=== PATIENT | female | born 1990 | race Caucasian/White ===

== ENCOUNTER → 2024-01-07 12:15 | Outpatient (CLI) | payer OTHER, SELFPAY ==
[2024-01-07 16:27] LABS: Urine N gonorrhoeae NOT DETECTED
[2024-01-07 16:47] LABS: Urine Chlamydia NOT DETECTED
== END ==
PROVIDERS: Referring Provider Obstetrics & Gynecology; Visit Provider Obstetrics & Gynecology
DX: Z34.81 Encounter for supervision of other normal pregnancy, first trimester (principal); Z3A.01 Less than 8 weeks gestation of pregnancy
CPT/HCPCS: 87491; 87591

== ENCOUNTER → 2024-02-11 11:18 | Outpatient (CLI) | payer OTHER, SELFPAY ==
[2024-02-11 13:07] LABS: Natera Collection Specimen Collected
[2024-02-11 13:22] LABS: Add Manual Diff / Slide Review NO; Basophils Absolute Auto 0 /uL (0-100); Basophils Percent Auto 0.3 % (0-2); Eosinophils Absolute Auto 100 /uL (0-450); Hematocrit 38.7 % (36-46); Hemoglobin 13.1 g/dL (12.0-16.0); Lymphocytes Absolute Auto 1900 /uL (1100-4500); Lymphocytes Percent Auto 21.3 % (25-40); Mean Corpuscular Hemoglobin 29.6 PG (26-34); Mean Corpuscular Volume 87.3 fL (80-100); Monocytes Absolute Auto 500 /uL (0-900); Monocytes Percent Auto 5.8 % (3-14); Neutrophils Absolute Auto 6500 /uL (1500-7000); Neutrophils Percent Auto 71.6 % (50-75); Platelet Count 251 X10^3/uL (150-400); Red Blood Cell Count 4.43 X10^6/uL (4.0-5.2); Red Cell Distribution Width 13.4 % (11.6-14.8)
[2024-02-13 12:38] LABS: Varicella IgG Antibody Reactive (Non Reactive)
[2024-02-14 15:53] LABS: Hepatitis B Surface Antigen NEGATIVE s/c (NEGATIVE); Rubella Antibody IgG 58.1 IU/mL (>15)
[2024-02-14 16:09] LABS: HIV 1 & 2 Ab/Ag 4th Gen Combo NEGATIVE (NEGATIVE); Hep C Virus Ab w/Reflex Quant NEGATIVE s/c (NEGATIVE)
[2024-02-15 03:37] LABS: RPR Screen Non Reactive (Non Reactive)
== END ==
PROVIDERS: Referring Provider Obstetrics & Gynecology; Visit Provider Obstetrics & Gynecology
DX: Z34.81 Encounter for supervision of other normal pregnancy, first trimester (principal); Z3A.12 12 weeks gestation of pregnancy
CPT/HCPCS: 36415; 80055; 86787; 86803; 86850; 86900; 86901; 87086; 87389

== ENCOUNTER → 2024-04-06 10:57 | Outpatient (CLI) | payer OTHER, SELFPAY ==
--- NOTE | 2024-04-06 11:00 | DI.US.S_ITS ---
PROCEDURE: US OB >= 14 WEEKS FETUS INDICATIONS: 20 week anatomy OUTSIDE/PRIOR DATING DATA: The calculations are made using the working RUDY of 08/24/2024. TECHNIQUE: Real-time scanning was performed of the fetus, with image documentation and biometric measurements. Endovaginal scanning: No COMPARISON: None. FINDINGS: General: A single living intrauterine gestation is present. Presentation: Transverse. Placenta: Placental position is posterior , without previa. Amniotic fluid index: 11.2 cm, normal range is 5-24 cm. Single deepest vertical pocket is 6.5 cm. heart rate: 139 beats per minute. Maternal cervical canal: 5.0 cm long. Normal lower limit is 2.5 cm. biometrics: Biparietal diameter: 4.6 cm, 19 week 6 day Head circumference: 17.0 cm, 19 week 4 day Abdominal circumference: 15.4 cm, 20 week 4 day Femur length: 3.2 cm, 19 week 6 day Clinically estimated gestational age: 20 week 0 day Composite gestational age from present scan: 20 week 0 day Estimated weight and percentile: 334 g, 53 percentile Anatomic survey: Neuro: Ventricles are non-dilated at less than 10 mm. Cisterna magna is normal at 3-11 mm. Cerebellum is normal in size and morphology. Nuchal skin fold: Normal at less than 6 mm between 14-21 weeks gestational age. Face: Nose and lips, facial profile are normal. Spine: No evidence for spina bifida. Heart: 4-chambered heart is present, with normal ventricular outflow tracts. Diaphragm: Diaphragm is intact. Stomach: Left-sided stomach is present. Kidneys: No hydronephrosis. Normal is less than 5 mm in 2nd trimester, less than 7 mm in 3rd trimester. Cord: 3-vessel cord has orthotopic insertion. Bladder: Normal in size. Extremities: All 4 extremities identified. IMPRESSION: Single live intrauterine consistent with 20 week 0 day gestation. Normal anatomic survey Approved by: Jacob Blake M.D. on 04/06/2024 at 17:09
== END ==
PROVIDERS: Referring Provider Obstetrics & Gynecology; Visit Provider Obstetrics & Gynecology
DX: Z34.82 Encounter for supervision of other normal pregnancy, second trimester (principal); Z3A.20 20 weeks gestation of pregnancy
CPT/HCPCS: 76811

== ENCOUNTER → 2024-05-29 10:13 | Outpatient (CLI) | payer OTHER, SELFPAY ==
[2024-05-29 12:06] LABS: GTT (PREG) 1 Hour PP 50gm Dose 83 mg/dL (76-139)
[2024-05-29 12:25] LABS: Hematocrit 37.1 % (36-46); Hemoglobin 12.6 g/dL (12.0-16.0)
== END ==
PROVIDERS: Referring Provider Obstetrics & Gynecology; Visit Provider Obstetrics & Gynecology
DX: O26.899 Other specified pregnancy related conditions, unspecified trimester (principal); Z3A.26 26 weeks gestation of pregnancy; Z67.91 Unspecified blood type, Rh negative
CPT/HCPCS: 36415; 82950; 85014; 85018; 86850

== ENCOUNTER → 2024-07-19 14:14 | Outpatient (CLI) | payer OTHER, SELFPAY ==
[2024-07-20 11:59] LABS: Strep Grp B PCR POS for Grp B Strep
== END ==
LOC: LAB 14:14
PROVIDERS: Visit Provider Obstetrics & Gynecology
DX: Z34.83 Encounter for supervision of other normal pregnancy, third trimester (principal); Z3A.35 35 weeks gestation of pregnancy
CPT/HCPCS: 87653

== ENCOUNTER 2024-08-22 09:42 | Outpatient (CLI) | payer OTHER, SELFPAY | END 2024-08-22 10:29 | disposition home or self-care (01) | LOC: OB 11:27 | PROVIDERS: Referring Provider Obstetrics & Gynecology; Visit Provider Obstetrics & Gynecology | DX: Z34.83 Encounter for supervision of other normal pregnancy, third trimester (principal); Z3A.39 39 weeks gestation of pregnancy | CPT/HCPCS: 59025; G0378; G0379 ==

== ENCOUNTER 2024-08-24 19:37 | Inpatient (IN) | payer OTHER, SELFPAY ==
--- NOTE | 2024-08-24 20:11 | P.HPOB_ITS ---
OB HPI Date/Time Date of admission: 08/24/24 Date Patient Seen: 08/24/24 Time Patient Seen: 20:11 History of Present Condition Chief complaint: IOL RUDY Calculator Estimated Delivery Date Method Current WG Current Estimate 08/24/24 Ultrasound #1 40w 0d Other Estimates 08/24/24 LMP (Certain) 40w 0d Estimated Gestational Age (weeks): 40w0d : 3 Para: 1 Narrative: 33yo at 40w0d presents for scheduled IOL at term seconadry to borderline LGA, prolonged prodromal labor without cervical change. Patient last seen in office 08/22, SVE at that time 0.5-1/long/hi and membrane stripped performed. Pt states she experienced some increased cramping and irregular painful contraction s but nothing consistent. +FM, denies VB, LOF, dysuria. Strongly desires to proceed with IOL at this time. care: good care Dating criteria OB: LMP confirmed by 1st trimester US Ultrasounds: normal 1st trimester US and normal mid trimester US Obstetrical complications: none Medical complications OB: none Indications Indication for induction OB: other (late term, borderline LGA, prolonged prodromal symptoms ) Preadmission Labs Last OB Lab Results: Blood Type O Negative 02/11/24, 12:07 Antibody Screen Negative 05/29/24, 11:35 Hct, (36-46) 37.1 % 05/29/24, 11:35 Hgb, (12.0-16.0) 12.6 g/dL 05/29/24, 11:35 Hep Bs Antigen, (NEGATIVE) Negative s/c 02/11/24, 12: 07 Hepatitis C Antibody, (NEGATIVE) Negative s/c 4, 12:07 Rubella Antibody, (>15) 58.1 IU/mL 02/11/24, 12:07 VZV IgG Antibody, (Non Reactive) Reactive 4, 12:07 Glucose 1 Hr 50 gm, (76-139) 83 mg/dL 05/29/24, 1 1:35 Group B Strep (PCR) Pos for grp b strep H 07/19/24, 14:20 -: Chlamydia screen: negative, Gonorrhea screen: negative and Urine: negative -: PAP smear: Normal Genetic Screens: Cell-free DNA: Normal and Alpha-fetoprotein: Normal External Labs -: Urine: negative Prior (ies) Past Pregnancies Del. Date GA/Weeks Labor Lgth Wt Sex Route Outcome Anesthesia Place Delv Breastfeed Preg Comp Name 07/24/22 40.2 40 8 lb 6 oz Female vaginal live - full tripathi none Juan Mason 14 months other Soni 08/18/23 spontaneous Delivery Date: 07/24/22 Last Updated by: Araseli Bran RN PROM Delivery Date: 08/18/23 Last Updated by: Araseli Bran RN blighted ovum, missed AB needed Rx to complete Hx # Term Pregnancies: 1 Number of Living Children: 1 Spontaneous abortions: 1 Evaluation Evaluation Baseline heart rate: 150 Variability: Moderate (6-25) monitor accelerations: Present Monitor Decelerations: Absent Category of Tracing: Reactive Status: Category l Dilation (cm): 1 Effacement (%): 30 Dilation: 1-2 cm Effacement: 0-30% station: -3 Position of cervix: mid Consistency: soft Max score: 4 [facility] Medical History (Updated 12/22/23 @ 14:09 by Araseli Bran RN) SAB (spontaneous ) Chicken pox (~1995) Surgical History (Updated 08/17/23 @ 09:39 by Araseli Bran RN) No pertinent past surgical history Family History (Updated 08/17/23 @ 09:43 by Araseli Bran RN) Aunt Type 1 diabetes Grandfather Stroke Social History marital status: number of children: 1 household members: spouse and children lives independently: Yes caregiver/support person: Yes housing: house pets and animals: No education level: college (bachelor's degree) occupational status: previously employed current occupational exposures/hazards: No renu/restorationism: Confucianist special renu needs: No travel history: recent ([place]) seatbelt use: always helmet use: Yes water heater temp set < 120 deg: Yes working smoke detector in home: Yes fire extinguisher in home: Yes carbon monox detector in home: Yes firearms in home: Yes firearms unloaded and locked: Yes do you feel safe at home: Yes second hand exposure: No alcohol intake: former (0-1/week when not ) substance use type: does not use during the past year weight has: other (baby 13 months old, close to pre- weight) well-balanced diet: daily or most days daily servings fruits/ve or more times/day caffeine: Yes (AM small cup coffee) Type(s) of exercise: aerobic, weight lifting, resistance training and running Meds Home Medications and Allergies Home Medications ?Medication ?Instructions ?Recorded ?Confirmed ?Type doxylamine succinate 25 mg tablet 25 - 50 mg PO BEDTIM E PRN 08/17/23 08/22/24 History magnesium oxide 250 mg PO DAILY 08/17/23 History vitamin-ferrous sulfate tab PO 08/17/2308/22 History 27 mg iron-folic acid 0.8 mg tablet pyridoxine (vitamin B6) 100 mg 100 mg PO BID PRN 08/1608/22/24 History tablet promethazine 12.5 mg tablet 12.5 mg PO TID PRN nausea and 08/18/23 08/22/24 Rx vomiting #6 tabs famotidine 20 mg tablet (Acid 20 mg PO BEDTIME #30 tab s 01/10/24 08/22/24 Rx [employer] (famotidine)) ondansetron HCl 4 mg tablet 4 mg PO Q6-8H PRN nausea a nd 01/10/24 08/22/24 Rx vomiting #20 tabs Allergies Allergy/AdvReac Type Severity Reaction Status Date / Time No Known Drug Allergies Allergy Verified 08/24/24 20:34 Review of Systems Review of Systems ROS: Yes All systems reviewed with the patient and are negative except as otherwise documented OB Exam Vital signs Blood Pressure: 127/71 Pulse Rate: 76 Respiratory Rate: 18 HENMT Head: normal to inspection Resp Effort & Inspection: normal respiratory effort and able to speak in complete sentences GI Palpation: Yes soft Other: gravid, slava cephalic 8-8.5# External Female Exam: Yes normal external appearance Estimated Weight (lbs): 8 Assessment and Plan Assessment and Plan Assessment and Plan narrative: 33yo at 40w0d D=8wk US presents for IOL at term secondary to borderline LGA, prolonged prodromal labor without cervical change IOL Cat 1 tracing, maternal VSS/afebrile CEFM/toco +GBS -- start ampicillin with ROM/active labor duncan balloon placed, 40cc instilled; SL misoprostol 25mcg now, start pitocin at 6h (0230) anticipate further augmentation with AROM as appropriate PNL reviewed and wnl as above Patient is consented for induction of labor, vaginal delivery, vaginal operative delivery, section as well as transfusion of blood products as medically indicated anticipate Time-Based Coding :: [TOTAL MINUTES] spent with patient and on the chart (including review of chart, obtaining history, exam, reviewing outside data, placing orders, documenting exam and treatment plan, and counseling patient) on [DATE].
[2024-08-24 20:37] VITALS: BP 127/71; PULSE 76; RESP 18
[2024-08-24] MEDS: miSOPROStoL 25 MCG TABLET SL (20:39)
[2024-08-24 21:13] LABS: Add Manual Diff / Slide Review NO; Basophils Absolute Auto 100 /uL (0-100); Basophils Percent Auto 0.9 % (0-2); Eosinophils Absolute Auto 300 /uL (0-450); Eosinophils Percent Auto 2.2 % (2-4); Hematocrit 36.2 % (36-46); Hemoglobin 12.3 g/dL (12.0-16.0); Lymphocytes Absolute Auto 2100 /uL (1100-4500); Mean Corpuscular HGB Conc 33.9 % (30-36); Mean Corpuscular Hemoglobin 30.3 PG (26-34); Mean Corpuscular Volume 89.3 fL (80-100); Monocytes Absolute Auto 1000 /uL (0-900); Monocytes Percent Auto 7.7 % (3-14); Neutrophils Absolute Auto 9700 /uL (1500-7000); Neutrophils Percent Auto 73.2 % (50-75); Platelet Count 168 X10^3/uL (150-400); Red Blood Cell Count 4.05 X10^6/uL (4.0-5.2); Red Cell Distribution Width 13.6 % (11.6-14.8); White Blood Cell Count 13.2 X10^3/uL (4.5-11.0)
[2024-08-24 21:56] VITALS: BP 137/83
[2024-08-25] MEDS: LACTATED RINGERS 1,000 ML 100 ML IV ×2 (02:36→18:42)
[2024-08-25] MEDS: OXYTOCIN PREMIX 30 UNIT/500 ML PLAST..BAG IV (02:37)
--- NOTE | 2024-08-25 08:11 | PM.OBPNLAB ---
Date/Time Date Patient Seen: 08/25/24 Time Patient Seen: 07:45 Pain Control Pain control: tolerating well Comments: Nicolas spontaneously expulsed immediately prior to MD interview this AM. Pit @ 5u. States increasing discomfort with contractions but still overall mild. Denies LOF, +FM. NAEON per RN Pelvic Exam Dilation (cm): 4 Effacement (%): 50 station: -3 Amniotic membrane status: Intact Contractions Contractions on admission: regular Monitor mode: External Pitocin rate (mU/min): 5 Contraction frequency (min): 4 Contraction pattern: Irregular Contraction intensity: Mild Status status: Category l Heart Rate Baseline: 145 Monitor Accelerations: Present Monitor Decelerations: Absent Monitor Variability: Moderate Assessment and Plan Assessment: induction ongoing Plan: continuous present management Comments: continue pitocin titration to pattern anticipate interval SVE 4h, attempt AROM with adequate descent start GBS ppx once active contraction pattern vs ROM anticipate
[2024-08-25] MEDS: AMPICILLIN 2,000 MG in SODIUM CHLORIDE 0.9% 100 ML 200 MG IV (16:32)
--- NOTE | 2024-08-25 17:53 | PM.OBPNLAB ---
Date/Time Date Patient Seen: 08/25/24 Time Patient Seen: 17:53 Pain Control Pain control: tolerating well Comments: Increasing discomfort with contractions, feeling more pressure, +bloody show per RN Pelvic Exam Dilation (cm): 5 Effacement (%): 70 station: -3 Amniotic membrane status: Ruptured (scant return clear fluid) Contractions Contractions on admission: regular Monitor mode: External Pitocin rate (mU/min): 20 Contraction frequency (min): 4 Contraction pattern: Regular Contraction intensity: Moderate Status status: Category l Heart Rate Baseline: 145 Monitor Accelerations: Present Monitor Decelerations: Absent Monitor Variability: Moderate Assessment and Plan Assessment: induction ongoing Plan: continuous present management Comments: Abx started for GBS ppx AROM performed with return of scant clear fluid interval cervical change, decrease pit from 20 --> 10 s/p AROM bedside hand-off to practice on-call partner Dr. Lombardo anticipate vaginal delivery
[2024-08-25] MEDS: AMPICILLIN 1,000 MG in SODIUM CHLORIDE 0.9% 100 ML 200 MG IV (20:02)
[2024-08-25] MEDS: ONDANSETRON 4 MG/2 ML INJ IV (20:37)
--- NOTE | 2024-08-26 00:05 | PM.AN.REGBLK ---
Regional Block Pre-procedure Procedure: Continuous Lumbar Epidural for L&D Attending OB provider: Endy Parsons PMH/ROS narrative: , IOL for LGA. 40/03/14 weeks requesting epidural. ROS neg with exception of GERD, asthma. PSH/Anesthesia history narrative: None Exam narrative: Mall II, good dentition ASA Class: II Labs: Hct 36.2 % (36-46) 08/24/24 20:50 Plt Count 168 X10^3/uL (150-400) 08/24/24 20:50 Medications: Current Medications Generic Name Dose Route Start Last Admin Trade Name Freq PRN Reason Stop Dose Admin Acetaminophen 650 mg 08/26/24 00:01 Acetaminophen 325 Mg Tablet PO Q4HR PRN headache/mild pain Calcium Carbonate 1,000 mg 08/24/24 19:46 Calcium Carbonate 500 Mg Tab PO Q2HR PRN Dyspepsia Carboprost Tromethamine 250 mcg 08/24/24 19:46 Carboprost 250 Mcg/Ml Ampul IM Q90M PRN Bleeding Hydroxyzine HCl 25 mg 08/26/24 00:01 Hydroxyzine 50 Mg/Ml Inj IM Q4HR PRN spasm or agitation Oxytocin/Lactated Ringer's 30 unit in 500 mls @ 200 mls/hr 08/24/24 19:46 Oxytocin Premix IV CONT PRN Bleeding Protocol Tranexamic Acid 1,000 mg/ 100 mls @ 600 mls/hr 08/24/24 19:46 Sodium Chloride IV NOW PRN Bleeding Ampicillin Sodium 1,000 mg/ 100 mls @ 200 mls/hr 08/25/24 00:00 08/25/24 20:02 Sodium Chloride IV 200 mls/hr Q4H DIANN Administration Oxytocin/Lactated Ringer's 30 unit in 500 mls @ 2 mls/hr 08/24/24 20:00 08/25/24 02:37 Oxytocin Premix IV 0.5 milliunit/min TITRATE DIANN 0.5 mls/hr Protocol Administration 2 MILLIUNIT/MIN Lactated Ringer's 1,000 mls @ 100 mls/hr 08/26/24 00:15 Lactated Ringers IV CONT DIANN FENT 2MCG/ML BUPIV 0.125% EPI 200 mcg in 100 mls @ 8 mls/hr 08/26/24 00:15 Fentanyl/Bupiv/Ns 2mcg/Ml - 0.125% EPIDURAL CONT DIANN Lidocaine HCl 20 ml 08/24/24 19:46 Lidocaine 1% 20 Ml INJ INTRA-OP PRN Post Delivery Methylergonovine Maleate 0.2 mg 08/24/24 19:46 Methylergonovine 0.2 Mg Tablet PO Q6HR PRN Heavy Bleeding Methylergonovine Maleate 0.2 mg 08/24/24 19:46 Methylergonovine 0.2 Mg/Ml Vial IM NOW PRN Bleeding Mineral Oil 30 ml 08/24/24 19:46 Mineral Oil 30 Ml Udc TOP PRN PRN Version Misoprostol 800 mcg 08/24/24 19:46 Misoprostol 200 Mcg Tablet NC NOW PRN Bleeding Misoprostol 400 mcg 08/24/24 19:46 Misoprostol 200 Mcg Tablet SL NOW PRN Bleeding Naloxone HCl 0.2 mg 08/24/24 19:46 Naloxone 0.4 Mg/Ml Vial IV Q2MIN PRN Opiate Reversal Naloxone HCl 0.4 mg 08/26/24 00:01 Naloxone 0.4 Mg/Ml Vial IV Q2MIN PRN Opiate Reversal Ondansetron HCl 4 mg 08/24/24 19:46 08/25/24 20:37 Ondansetron 4 Mg/2 Ml Inj IV 4 mg Q4HR PRN Administration Nausea And Vomiting Ondansetron HCl 4 mg 08/26/24 00:01 Ondansetron 4 Mg/2 Ml Inj IV Q6HR PRN Nausea And Vomiting Oxytocin 10 unit 08/24/24 19:46 Oxytocin 10 Unit/Ml Vial IM NOW PRN Bleeding Allergies: Allergies Allergy/AdvReac Type Severity Reaction Status Date / Time No Known Drug Allergies Allergy Verified 08/24/24 20:34 Procedure Insertion date: 08/25/24 Insertion time: 23:35 Prep/Local: 1% lidocaine (chlorhex skin prep, dry x 3 min) Interspace: L4-5 Patient position: sitting Needle: 17 gauge Tuohy Loss of resistance with: saline VILMA at (cm): 6 Catheter placed at SKIN (cm): 13 Catheter in SPACE (cm): 7 Sensory level: T10 Insertion: No CSF, No Blood, No Paresthesia with insertion, No Paresthesia with injection and No Test dose reaction Initial Medications TEST DOSE time: 23:41 BOLUS DOSE time: 23:52 BOLUS DOSE (mL): 7 BOLUS DOSE med: other (pump solution) Infusion INFUSION: 0.125% bupivacaine and with fentanyl 2 mcg/mL Initial rate (mL/hr): 8 Post-procedure Anesthesia date START: 08/25/24 Anesthesia time START: 23:35
--- NOTE | 2024-08-26 00:58 | PM.OBPNLAB ---
Date/Time Date Patient Seen: 08/26/24 Time Patient Seen: 00:58 Pain Control Pain control: epidural Comments: SVE 7-8cm/80/-1 at 2229, no interval change in 2h with appreciable asynclitic presentation. Patient counseled on and in agreement with recommendation to proceed with epidural for analgesia. Interval SVE 0030 following placement of epidural without appreciable change. bedside US performed with spine noted anterior, limited assessment of head secondary to deep station however orbits visualized and consistent with ROT. Noted perineal/labial edema, urine clear with placement of duncan Pelvic Exam Dilation (cm): 8 Effacement (%): 90 station: -1 Amniotic membrane status: Ruptured (scant return clear fluid) Contractions Contractions on admission: regular Monitor mode: External Pitocin rate (mU/min): 0 Contraction frequency (min): 6 Contraction pattern: Regular Contraction intensity: Moderate Status status: Category l Heart Rate Baseline: 140 Monitor Accelerations: Present Monitor Decelerations: Absent Monitor Variability: Moderate Comments: reassuring surveillance throughout Assessment and Plan Assessment: active labor Plan: continuous present management Comments: patient and partner counseled at bedside, reviewed asynclitic presentation without appreciable cervical change since 2029, improved presentation with adequate maternal analgesia, excellent tracing throughout, however concern for obstructed labor in setting of stall in cervical dilation. Pit off since 2244 to allow for pt to receive epidural (started at 0200 08/25), resume at 2u with standard up-titration plan interval reassessment in 1h - if worsening asynclitic presentation or in absence of further descent at that time patient and partner counseled that this would be consistent with obstructed labor and I would recommend to proceed to primary at that time given prior concerns for LGA Patient and partner verbalize understanding and are in agreement with plan of care plan interval SVE 1h, sooner PRN
--- NOTE | 2024-08-26 02:25 | PM.OBPNLAB ---
Date/Time Date Patient Seen: 08/26/24 Time Patient Seen: 02:25 Pain Control Pain control: tolerating well and epidural Comments: pt resting comfortably Pelvic Exam Dilation (cm): 9 Effacement (%): 90 station: 0 Amniotic membrane status: Ruptured (scant return clear fluid) Comments: interval descent, appropriate interval change in cervical dilation Contractions Contractions on admission: regular Monitor mode: External Pitocin rate (mU/min): 4 Contraction frequency (min): 4 Contraction pattern: Regular Contraction intensity: Moderate Status status: Category l Heart Rate Baseline: 140 Monitor Accelerations: Present Monitor Decelerations: Absent Monitor Variability: Moderate Assessment and Plan Assessment: active labor Plan: continuous present management Comments: interval change to 9cm, further descent to 0 persistent cat 1 tracing, maternal VSS/afebrile interval decrease in perineal edema noted continue present management, repeat interval SVE 1-2h low threshold to consider CS in sikh of repeat stall of dilation/descent
[2024-08-26] MEDS: AMPICILLIN 1,000 MG in SODIUM CHLORIDE 0.9% 100 ML 200 MG IV (03:24)
[2024-08-26] MEDS: OXYTOCIN PREMIX 30 UNIT/500 ML PLAST..BAG 200 UNIT IV (05:53)
[2024-08-26] MEDS: miSOPROStoL 200 MCG TABLET 800 MCG PR (05:59)
[2024-08-26] MEDS: ACETAMINOPHEN 325 MG TABLET 650 MG PO (06:12)
--- NOTE | 2024-08-26 06:17 | PM.OBPRVD ---
Labor & Delivery Delivery date: 08/26/24 Delivery Time: 05:46 Intrapartal Events: Prolonged Latent Phase and Chorioamnionitis Cervical ripening method: per Valenzuela bulb protocol Induction method: per pitocin protocol Delivery augmentation: rupture of membranes Delivery monitor: external FHT Route of delivery: Episiotomy description: None L&D Laceration Description: Vaginal - 1st Degree Estimated blood loss (mL): 600 Quantitative Blood Loss: 993 Anesthesia Type: Epidural Complications: triple-I diagnosed immediately following delivery, maternal temp normal prior to initiation of second stage, noted new tachycardia to 165bpm at initiation of second stage Narrative: Pt in dorsal lithotomy position with strong urge to push, C/C/+2. Slow descent of head to +3; patient placed in rocker-bottom position and with next expulsive effort delivery of head in straight OA position with restitution to maternal L. Gentle downward traction applied with immediate delivery of anterior shoulder; posterior shoulder and body delivered without difficulty and vigorous placed on maternal chest. Delayed cord clamping x2 min. Cord clamped x2, cut by FOB and 3VC noted. Active management of 3rd stage with delivery of intact placenta <5min from delivery. Immediate large gush of blood with adequate uterine tone consistent with atonic LENCHO. Bimanual massage performed with rapid improvement, 1000mg misoprostol placed per rectum for further hemorrhage prophylaxis. QBL 993mL. 2g ancef IV for maternal fever at time of delivery, presumed triple-I. Perineal exam revealed hemostatic 1st degree laceration, unrepaired. All counts correct x2 Baby 1: gender: Female Presentation: vertex Position: Right Occiput Anterior Placenta delivery description: Spontaneous Cord Vessel Description: 3 Vessels score (1 min): 8 score (5 min): 9 Plan for aftercare: Routine care
--- NOTE | 2024-08-26 07:02 | PATH_ITS ---
[facility] Accession Number: [id number] No. of containers..01 Tissue . 01 Material submitted: . placenta - PLACENTA . 01 Diagnosis: PLACENTA, DELIVERY: Mature justin placenta with trivascular umbilical cord. Focal mild acute chorioamnionitis. Placental infarcts, up to 3.5 cm. MRV 09/06/2024 1653 Local . 01 Electronically signed: . Pastora Parrish DO, Pathologist NPI- [id number] . 01 Gross description: . Received presumably in formalin (the tissue is pink; however a formaldehyde test strip is positive. A small portion of tissue is saved in a Hughes tube.) with two identifiers and no site on jar, is a discoid justin placenta with a trimmed weight of 676 grams and measuring 19.8 x 17.6 x 2.7 cm with no accessory lobes identified. . The membranes are pink-krishnan and translucent with no discoloration or thickening identified. They insert at the margin and have a point of rupture 1.0 cm from the nearest disc edge. . The cord is 39.5 cm in length by 1.3 cm in average diameter with a leftward coil and an index of approximately 2 twists per 5 cm. The cord inserts paracentrally, and sectioning reveals unremarkable trivascular architecture with no knots or lesions identified. . The surface is purple-red with normal arborizing vasculature and no lesions identified. . The maternal surface is apparently complete with several peripheral krishnan areas of discoloration, the largest measuring 3.5 cm in greatest dimension occupying approximately 10% of the maternal surface. Sectioning reveals the largest maternal surface discoloration to extend into the parenchyma; however, the total surface area of the discoloration is 10% or less of the parenchyma. No additional lesions are identified. The remaining cut surface is red and spongy. Meter Reader Inspector sections are submitted as follows: . A1: Membrane roll and placental end of cord. A2: Membrane roll with end of cord. A3: Full thickness maternal and cut surface discoloration. A5-A6: Central full thickness unremarkable sections. ([id number]) /MRV 08/29/[address] [place] [address] . 01 Pathologist provided ICD-10: O43.819 . 01 CPT . 755986 Performed at: [address] [facility] [id number], [place], [place] [id number] MD Fili Lainez MD Phone: [phone]
[2024-08-26] MEDS: CEFAZOLIN 2 GM/100 ML PREMIX 100 ML IV (08:26)
[2024-08-26] MEDS: WITCH HAZEL/GLYCERIN PADS 1 EACH TOP (14:27)
[2024-08-26] MEDS: DERMOPLAST SPRAY 20% 60 ML 1 SPRAY TOP (14:27)
[2024-08-26] MEDS: LANOLIN OINT 7 GM 1 APPLIC TOP (14:28)
[2024-08-27 08:27] LABS: Add Manual Diff / Slide Review NO; Basophils Absolute Auto 100 /uL (0-100); Basophils Percent Auto 0.4 % (0-2); Eosinophils Absolute Auto 300 /uL (0-450); Eosinophils Percent Auto 1.5 % (2-4); Hematocrit 32.4 % (36-46); Hemoglobin 10.9 g/dL (12.0-16.0); Lymphocytes Absolute Auto 2500 /uL (1100-4500); Lymphocytes Percent Auto 13.2 % (25-40); Mean Corpuscular HGB Conc 33.6 % (30-36); Mean Corpuscular Hemoglobin 30.4 PG (26-34); Mean Corpuscular Volume 90.4 fL (80-100); Monocytes Absolute Auto 1000 /uL (0-900); Monocytes Percent Auto 5.5 % (3-14); Neutrophils Absolute Auto 14800 /uL (1500-7000); Neutrophils Percent Auto 79.4 % (50-75); Platelet Count 143 X10^3/uL (150-400); Red Blood Cell Count 3.59 X10^6/uL (4.0-5.2); Red Cell Distribution Width 13.7 % (11.6-14.8); White Blood Cell Count 18.7 X10^3/uL (4.5-11.0)
[2024-08-27] MEDS: RHO(D) IMMUNE GLOBULIN 1,500 UNIT SYRINGE 1500 UNIT IM (10:43)
--- NOTE | 2024-08-27 11:15 | P.DS_ITS ---
Discharge Providers Provider Date of admission: 08/24/24 19:37 Discharge Date: 08/27/24 Primary care physician: Doctor Adalberto MD Consults: 08/24/24 19:47 Consult to Anesthesiology Urgent Comment: Consulting Provider: Anesthesiologist Reason for consultation: Epidural Has provider been notified: Yes 08/26/24 06:49 Consult to Mine Engineering Supervisor Routine Comment: Discharge provider: Demetris Bolaños MD Summary Hospital Course Date Patient Seen: 08/27/24 Time Patient Seen: 11:16 Diagnoses: # # mother Hospital Course: Admitted for eIOL on 08/24. Progressed adequately with augmentation to complete dilation over the course of 30 hours. She had an uncomplicated of a live female infant with a first degree vaginal laceration. Her course was uncomplicated. At discharge patient is ambulating well, tolerating normal diet, breast-feeding without difficulty, and pain is adequately controlled. She reports bleeding is similar to normal menses. Peripartum Data Laceration Description: Vaginal - 1st Degree complications: none [place] 1: Gender: Female Disposition of : home Status at Discharge Cognitive/behavioral status at discharge: at baseline, oriented Functional status at discharge: independent ambulation Overall status at discharge: patient is progressing back to baseline Time Spent with Patient Time attestation: Total time spent providing and/or coordinating discharge services: 25 minutes Objective Labs 08/27/24 08:15 Labs: Laboratory Results - last 24 hr 08/27/24 08:15 WBC 18.7 H RBC 3.59 L Hgb 10.9 L Hct 32.4 L MCV 90.4 MCH 30.4 MCHC 33.6 RDW 13.7 Plt Count 143 L Neut % (Auto) 79.4 H Lymph % (Auto) 13.2 L [place] % (Auto) 5.5 Eos % (Auto) 1.5 L Baso % (Auto) 0.4 Neut # (Auto) 33251 H Lymph # (Auto) 2500 [place] # (Auto) 1000 H Eos # (Auto) 300 Baso # (Auto) 100 Maternal Bleed Negative Exam Narrative Exam Narrative: General: Well-appearing, well-nourished, no distress HEENT: Moist mucous membranes, no pallor CV: Regular rate and rhythm, no murmur auscultated Resp: CTAB, comfortable work of breathing Abdomen: Soft, bowel sounds present, fundus firm below umbilicus with appropriate tenderness Extremities: No edema, no calf tenderness or evidence of DVT Discharge Plan Discharge Plan Patient Disposition: Home Discharge orders & Medications Prescriptions: New acetaminophen 325 mg Tablet 650 mg PO Q6H PRN (Reason: Pain, Mild (1-3)) Qty: 60 1RF Dermoplast (with menthol) 20-0.5 % Aerosol 1 spray topical Q1HR PRN (Reason: Pain, Moderate (4-6)) Qty: 78 0RF ibuprofen 600 mg Tablet 600 mg PO Q6H Qty: 60 1RF Purelan Cream 1 applic topical PRN PRN (Reason: Sore Nipples) Qty: 7 6RF polyethylene glycol 3350 17 gram/dose powder 17 g PO DAILY Qty: 510 1RF Continued famotidine [Acid Foam Rubber Mixer (famotidine)] 20 mg tablet 20 mg PO BEDTIME Qty: 30 2RF vit-ferrous sulfat-FA 27 mg iron- 0.8 mg tablet 1 tab PO magnesium oxide 500 mg magnesium tablet 250 mg PO DAILY Discontinued ondansetron HCl 4 mg tablet 4 mg PO Q6-8H PRN (Reason: nausea and vomiting) Qty: 20 2RF pyridoxine (vitamin B6) 100 mg tablet 100 mg PO BID PRN (Reason: GERD) doxylamine succinate 25 mg tablet 25 mg PO BEDTIME PRN (Reason: sleep) promethazine 12.5 mg tablet 12.5 mg PO TID PRN (Reason: nausea and vomiting) Qty: 6 0RF Follow up/Referrals: Adalberto,MD [place] [Primary Care Provider, Medical] Visit Report/Discharge Packet Stand Alone Forms: Discharge: Care, Patient Portal/API, Stroke Signs & Symptoms Discharge Data Primary Care Provider: Doctor Adalberto Attending Provider: Endy Parsons Admit Date/Time: 08/24/24 19:37
== END 2024-08-27 13:10 | disposition home or self-care (01) | DRG 805 ==
PROVIDERS: Obstetrics & Gynecology; Admitting Provider Obstetrics & Gynecology; Referring Provider Obstetrics & Gynecology; Visit Provider Obstetrics & Gynecology
DX: O63.0 Prolonged first stage (of labor) (principal); O41.1230 Chorioamnionitis, third trimester, not applicable or unspecified; Z37.0 Single live birth; Z3A.40 40 weeks gestation of pregnancy; O99.824 Streptococcus B carrier state complicating childbirth
CPT/HCPCS: 36415; 59050; 59200; 59400; 85025; 85461; 86850; 86900; 86901; G0378; G0379; J0290; J0690; J2405; J2590; J2790; S0191